=== PATIENT | female | born 1935 | race Caucasian/White ===

== ENCOUNTER 2021-04-24 07:43 | Inpatient (IN) ==
[2021-04-24] MEDS ORDERED: Clindamycin 900 MG/50 ML 900 MG/50 ML IV.SOLN IVPB ONE (08:23)
[2021-04-24] MEDS ORDERED: Ringers Solution, Lactated 1,000 ML IVC SCH (08:30)
[2021-04-24] MEDS ORDERED: *HR* OxyCODONE Immed Rel 5 MG TABLET PO PRN (09:13)
[2021-04-24] MEDS ORDERED: *HR* Labetalol 20 MG/4 ML SYRINGE IVP PRN (09:13)
[2021-04-24] MEDS ORDERED: Acetaminophen IV 1,000 MG/100 ML BAG IVPB ONE (09:13)
[2021-04-24] MEDS ORDERED: *HR* HYDROmorphone 2 MG TABLET PO PRN (09:13)
[2021-04-24] MEDS ORDERED: Famotidine 20 MG/2 ML VIAL IVP ONE (09:13)
[2021-04-24] MEDS ORDERED: Lidocaine -MPF 2% 5 ML VIAL ONE (09:31)
[2021-04-24] MEDS ORDERED: *HR* Rocuronium Bromide 50 MG/5 ML VIAL ONE ×2 (09:31→12:22)
[2021-04-24] MEDS ORDERED: *HR* FentaNYL (PF) 100 MCG/2 ML VIAL ONE ×2 (09:31→12:22)
[2021-04-24] MEDS ORDERED: Ondansetron 4 MG/2 ML VIAL ONE (09:31)
[2021-04-24] MEDS ORDERED: *HR* Propofol 200 MG/20 ML VIAL IVP ONE (09:32)
[2021-04-24] MEDS ORDERED: Lidocaine HCL 4 ML Topical Solution (Laryng-O-Jet Kit Sterile Pak) TP ONE ×2 (09:35→14:13)
[2021-04-24] MEDS ORDERED: EPHEDrine 50 MG/ML VIAL ONE (11:56)
[2021-04-24] MEDS ORDERED: Sugammadex Sodium 200 MG/2 ML VIAL IV ONE (14:18)
[2021-04-24] MEDS: *HR* HYDROmorphone (PF) 1 MG/ML SYRINGE IVP PRN ×2 (14:45→14:57)
[2021-04-24 18:32] LABS: Alanine Aminotransferase 8 Units/L (7-52); Albumin 3.6 g/dL (3.5-5.7); Albumin/Globulin Ratio 1.5 (1.1-2.2); Alkaline Phosphatase 46 Units/L (34-104); Aspartate Amino Transferase 17 Units/L (13-39); BUN/Creatinine Ratio 23 (6-26); Bilirubin,Total 0.6 mg/dL (0.3-1.0); Blood Urea Nitrogen 21 mg/dL (8-23); Calcium 8.4 mg/dL (8.6-10.3); Carbon Dioxide 17 mEq/L (23-29); Chloride 107 mEq/L (98-107); Globulin 2.4 g/dL (2.4-3.5); Glucose 169 mg/dL (70-105); Osmolality,Calculated 293 (280-300); Potassium 3.7 mEq/L (3.5-5.1); Sodium 138 mEq/L (136-145); eGFR For African Americans > 60 (> 60); eGFR For Non-African Americans 58 (> 60)
[2021-04-24] MEDS: 0.9 % Sodium Chloride 1,000 ML IVC SCH (19:57)
[2021-04-24] MEDS: Acetaminophen IV 1,000 MG/100 ML BAG IVPB SCH (19:58)
[2021-04-24] MEDS: Clindamycin 900 MG/50 ML 900 MG/50 ML IV.SOLN IVPB SCH (19:58)
[2021-04-24] MEDS: Famotidine 20 MG/2 ML VIAL IVP SCH (19:59)
[2021-04-25] MEDS: Acetaminophen IV 1,000 MG/100 ML BAG IVPB SCH ×5 (00:44→23:50)
[2021-04-25 01:53] LABS: Basophils % 0.1 %; Immature Granulocytes % 0.3 % (0-4)
[2021-04-25 01:56] LABS: Eosinophils % 0.1 %; Hematocrit 34.8 % (35.3-44.9); Hemoglobin 10.8 g/dL (11.5-15.4); Immature Platelets 3.5 % (1.1-6.1); Lymphocytes # 0.4 K/mcL (0.6-4.6); Lymphocytes % 3.1 %; Mean Corpuscular Hemoglobin 30.1 pg (28.0-33.3); Mean Corpuscular Volume 96.9 fL (83.0-100.0); Mean Platelet Volume 10.5 fL (9.4-12.4); Monocytes # 0.9 K/mcL (0.0-1.3); Platelet Count 325 K/mcL (140-400); Red Blood Count 3.59 M/mcL (3.82-4.97); Red Cell Distribution Width 12.9 % (11.5-14.5); Segmented Neutrophils % 88.4 %; White Blood Count 11.6 K/mcL (4.3-11.1)
[2021-04-25 01:59] LABS: Neutrophils # 10.3 K/mcL (1.6-8.9)
[2021-04-25 02:08] LABS: BUN/Creatinine Ratio 26 (6-26); Blood Urea Nitrogen 23 mg/dL (8-23); Calcium 8.3 mg/dL (8.6-10.3); Carbon Dioxide 23 mEq/L (23-29); Chloride 107 mEq/L (98-107); Glucose 183 mg/dL (70-105); Magnesium 1.5 mg/dL (1.6-2.6); Osmolality,Calculated 298 (280-300); Phosphorous 4.1 mg/dL (2.7-4.5); Potassium 4.1 mEq/L (3.5-5.1); Sodium 140 mEq/L (136-145); eGFR For African Americans > 60 (> 60); eGFR For Non-African Americans 60 (> 60)
[2021-04-25] MEDS: Clindamycin 900 MG/50 ML 900 MG/50 ML IV.SOLN IVPB SCH ×2 (03:26→12:30)
[2021-04-25] MEDS: Famotidine 20 MG/2 ML VIAL IVP SCH (05:45)
[2021-04-25] MEDS: 0.9 % Sodium Chloride 1,000 ML IVC SCH ×2 (07:47→13:58)
[2021-04-25] MEDS: lisinopriL 20 MG TABLET PO SCH (13:57)
[2021-04-25] MEDS: *HR* Heparin 5,000 UNIT/ML VIAL SQ SCH (17:34)
[2021-04-25] MEDS: Ondansetron 4 MG/2 ML VIAL IVP PRN (23:50)
[2021-04-26 03:23] LABS: Basophils % 0.2 %; Eosinophils # 0.1 K/mcL (0.0-0.6); Eosinophils % 0.6 %; Hematocrit 29.6 % (35.3-44.9); Hemoglobin 9.6 g/dL (11.5-15.4); Immature Granulocytes % 0.7 % (0-4); Lymphocytes # 1.1 K/mcL (0.6-4.6); Lymphocytes % 10.2 %; Mean Corpuscular HGB Conc 32.4 g/dL (31.6-35.5); Mean Corpuscular Hemoglobin 31.7 pg (28.0-33.3); Mean Corpuscular Volume 97.7 fL (83.0-100.0); Mean Platelet Volume 10.4 fL (9.4-12.4); Monocytes # 1.2 K/mcL (0.0-1.3); Monocytes % 11.1 %; Neutrophils # 8.5 K/mcL (1.6-8.9); Platelet Count 279 K/mcL (140-400); Red Blood Count 3.03 M/mcL (3.82-4.97); Red Cell Distribution Width 13.5 % (11.5-14.5); Segmented Neutrophils % 77.2 %
[2021-04-26 03:31] LABS: BUN/Creatinine Ratio 27 (6-26); Blood Urea Nitrogen 24 mg/dL (8-23); Carbon Dioxide 21 mEq/L (23-29); Chloride 109 mEq/L (98-107); Glucose 91 mg/dL (70-105); Osmolality,Calculated 290 (280-300); Phosphorous 2.7 mg/dL (2.7-4.5); Potassium 4.2 mEq/L (3.5-5.1); Sodium 138 mEq/L (136-145); eGFR For African Americans > 60 (> 60); eGFR For Non-African Americans > 60 (> 60)
[2021-04-26] MEDS: Acetaminophen IV 1,000 MG/100 ML BAG IVPB SCH ×3 (05:41→17:14)
[2021-04-26] MEDS: *HR* Heparin 5,000 UNIT/ML VIAL SQ SCH ×2 (05:41→17:16)
[2021-04-26] MEDS: 0.9 % Sodium Chloride 1,000 ML IVC SCH (05:43)
[2021-04-26] MEDS: lisinopriL 20 MG TABLET PO SCH (07:32)
[2021-04-26] MEDS ORDERED: Famotidine 20 MG/2 ML VIAL IVP SCH (09:00)
[2021-04-27] MEDS: Acetaminophen IV 1,000 MG/100 ML BAG IVPB SCH ×4 (01:56→20:51)
[2021-04-27 02:48] LABS: Basophils % 0.3 %; Eosinophils # 0.2 K/mcL (0.0-0.6); Eosinophils % 2.5 %; Hemoglobin 9.5 g/dL (11.5-15.4); Immature Granulocytes % 0.3 % (0-4); Lymphocytes # 1.1 K/mcL (0.6-4.6); Lymphocytes % 12.6 %; Mean Corpuscular HGB Conc 31.7 g/dL (31.6-35.5); Mean Corpuscular Hemoglobin 30.9 pg (28.0-33.3); Mean Corpuscular Volume 97.7 fL (83.0-100.0); Mean Platelet Volume 9.4 fL (9.4-12.4); Monocytes # 0.8 K/mcL (0.0-1.3); Monocytes % 9.2 %; Neutrophils # 6.6 K/mcL (1.6-8.9); Platelet Count 325 K/mcL (140-400); Red Blood Count 3.07 M/mcL (3.82-4.97); Red Cell Distribution Width 13.2 % (11.5-14.5); Segmented Neutrophils % 75.1 %; White Blood Count 8.7 K/mcL (4.3-11.1)
[2021-04-27 03:03] LABS: BUN/Creatinine Ratio 23 (6-26); Blood Urea Nitrogen 15 mg/dL (8-23); Calcium 8.4 mg/dL (8.6-10.3); Carbon Dioxide 21 mEq/L (23-29); Chloride 107 mEq/L (98-107); Glucose 81 mg/dL (70-105); Magnesium 1.5 mg/dL (1.6-2.6); Osmolality,Calculated 284 (280-300); Phosphorous 1.6 mg/dL (2.7-4.5); Potassium 3.4 mEq/L (3.5-5.1); Sodium 137 mEq/L (136-145); eGFR For African Americans > 60 (> 60); eGFR For Non-African Americans > 60 (> 60)
[2021-04-27] MEDS: *HR* Heparin 5,000 UNIT/ML VIAL SQ SCH ×2 (05:37→17:08)
[2021-04-27] MEDS: 0.9 % Sodium Chloride 1,000 ML IVC SCH (05:37)
[2021-04-27] MEDS ORDERED: 0.9 % Sodium Chloride 1,000 ML IVC SCH (07:15)
[2021-04-27 08:06] LABS: Iron 14 mcg/dL (50-170)
[2021-04-27] MEDS: lisinopriL 20 MG TABLET PO SCH (08:48)
[2021-04-27] MEDS: amLODIPine 5 MG TABLET PO SCH (08:50)
[2021-04-28] MEDS: Acetaminophen IV 1,000 MG/100 ML BAG IVPB SCH ×2 (04:07→09:54)
[2021-04-28] MEDS: *HR* Heparin 5,000 UNIT/ML VIAL SQ SCH ×2 (05:35→18:33)
[2021-04-28 06:02] LABS: Basophils % 0.4 %; Eosinophils # 0.5 K/mcL (0.0-0.6); Eosinophils % 6.2 %; Hematocrit 28.8 % (35.3-44.9); Immature Granulocytes % 0.4 % (0-4); Lymphocytes # 1.5 K/mcL (0.6-4.6); Lymphocytes % 20.1 %; Mean Corpuscular HGB Conc 31.3 g/dL (31.6-35.5); Mean Platelet Volume 9.6 fL (9.4-12.4); Monocytes # 0.7 K/mcL (0.0-1.3); Monocytes % 9.3 %; Neutrophils # 4.9 K/mcL (1.6-8.9); Platelet Count 385 K/mcL (140-400); Red Cell Distribution Width 12.9 % (11.5-14.5); Segmented Neutrophils % 63.6 %; White Blood Count 7.6 K/mcL (4.3-11.1)
[2021-04-28 06:22] LABS: BUN/Creatinine Ratio 18 (6-26); Blood Urea Nitrogen 12 mg/dL (8-23); Calcium 8.3 mg/dL (8.6-10.3); Carbon Dioxide 23 mEq/L (23-29); Chloride 105 mEq/L (98-107); Glucose 78 mg/dL (70-105); Magnesium 1.4 mg/dL (1.6-2.6); Osmolality,Calculated 285 (280-300); Phosphorous 2.9 mg/dL (2.7-4.5); Potassium 3.3 mEq/L (3.5-5.1); Sodium 138 mEq/L (136-145); eGFR For African Americans > 60 (> 60); eGFR For Non-African Americans > 60 (> 60)
[2021-04-28] MEDS ORDERED: Magnesium Sulfate 1 GM/102 ML PIGGYBACK IVPB ONE (08:03)
[2021-04-28] MEDS: Iron Sucrose Complex 250 MG in 0.9 % Sodium Chloride 250 ML IVPB SCH (09:30)
[2021-04-28] MEDS: amLODIPine 5 MG TABLET PO SCH (09:52)
[2021-04-28] MEDS: lisinopriL 20 MG TABLET PO SCH (09:52)
[2021-04-28] MEDS: Acetaminophen 325 MG TABLET PO PRN (13:03)
[2021-04-28] MEDS: *HR* HYDROcodone/Acet 5/325 mg TABLET PO PRN (20:07)
[2021-04-29] MEDS: *HR* Heparin 5,000 UNIT/ML VIAL SQ SCH ×2 (05:16→18:53)
[2021-04-29 06:31] LABS: Basophils % 0.3 %; Eosinophils # 0.6 K/mcL (0.0-0.6); Eosinophils % 5.8 %; Hematocrit 29.8 % (35.3-44.9); Hemoglobin 9.3 g/dL (11.5-15.4); Immature Granulocytes % 0.6 % (0-4); Lymphocytes # 1.3 K/mcL (0.6-4.6); Lymphocytes % 13.5 %; Mean Corpuscular HGB Conc 31.2 g/dL (31.6-35.5); Mean Corpuscular Hemoglobin 30.1 pg (28.0-33.3); Mean Corpuscular Volume 96.4 fL (83.0-100.0); Mean Platelet Volume 9.8 fL (9.4-12.4); Monocytes % 9.8 %; Neutrophils # 6.8 K/mcL (1.6-8.9); Platelet Count 431 K/mcL (140-400); Red Blood Count 3.09 M/mcL (3.82-4.97); Red Cell Distribution Width 13.2 % (11.5-14.5); White Blood Count 9.7 K/mcL (4.3-11.1)
[2021-04-29 06:50] LABS: BUN/Creatinine Ratio 22 (6-26); Blood Urea Nitrogen 17 mg/dL (8-23); Calcium 8.5 mg/dL (8.6-10.3); Carbon Dioxide 23 mEq/L (23-29); Chloride 109 mEq/L (98-107); Glucose 113 mg/dL (70-105); Magnesium 1.4 mg/dL (1.6-2.6); Osmolality,Calculated 292 (280-300); Phosphorous 2.4 mg/dL (2.7-4.5); Sodium 140 mEq/L (136-145); eGFR For African Americans > 60 (> 60); eGFR For Non-African Americans > 60 (> 60)
[2021-04-29] MEDS: amLODIPine 5 MG TABLET PO SCH (09:28)
[2021-04-29] MEDS: Iron Sucrose Complex 250 MG in 0.9 % Sodium Chloride 250 ML IVPB SCH (09:28)
[2021-04-29] MEDS: lisinopriL 20 MG TABLET PO SCH (09:28)
[2021-04-29] MEDS: Ondansetron 4 MG/2 ML VIAL IVP PRN ×2 (09:32→16:15)
[2021-04-29] MEDS: Acetaminophen 325 MG TABLET PO PRN (16:40)
[2021-04-29 23:18] VITALS: O2SAT 93
[2021-04-30 04:08] VITALS: BP 133/76; PULSE 79; TEMP 98.7
[2021-04-30] MEDS: *HR* Heparin 5,000 UNIT/ML VIAL SQ SCH (06:14)
[2021-04-30] MEDS: lisinopriL 20 MG TABLET PO SCH (07:08)
[2021-04-30] MEDS: amLODIPine 5 MG TABLET PO SCH (07:08)
[2021-04-30 10:01] LABS: % Iron Saturation 8 % (15-50); Transferrin 123 mg/dL (200-400)
[2021-04-30] MEDS ORDERED: Scopolamine Patch 1.5 MG PATCH.TD72 TD ONE (10:53)
[2021-04-30] MEDS: *HR* HYDROcodone/Acet 5/325 mg TABLET PO PRN (11:25)
[2021-04-30] MEDS: Ondansetron 4 MG/2 ML VIAL IVP PRN (11:28)
== END 2021-04-30 13:37 | disposition home or self-care (01) | DRG 331 ==
LOC: SAMDAY 07:43 → 3ANU 16:04
PROVIDERS: ADMIT Surgery; ATTEND Surgery